=== PATIENT | female | born 2000 | race Caucasian/White ===

== ENCOUNTER 2020-10-07 07:10 | Emergency (ER) | payer BC ==
[2020-10-07 07:57] LABS: HEMOGLOBIN 14.6 gm/dl (12.3-15.3); RED BLOOD COUNT 5.14 M/UL (4.00-5.10); WHITE BLOOD COUNT 13.3 K/UL (4.5-11.0)
[2020-10-07 08:16] LABS: BUN/CREATININE RATIO 17 (0-10)
[2020-10-07] MEDS ORDERED: ONDANSETRON ODT4 MG SL (12:27)
[2020-10-07] MEDS ORDERED: TORADOL 10 MG T10 MG PO (12:27)
== END 2020-10-07 13:17 | disposition home or self-care (01) ==
LOC: ER1 07:10
PROVIDERS: Family Medicine
DX: N83.201 Unspecified ovarian cyst, right side (principal); N83.202 Unspecified ovarian cyst, left side; I88.0 Nonspecific mesenteric lymphadenitis; K76.0 Fatty (change of) liver, not elsewhere classified; Z90.89 Acquired absence of other organs; Z79.899 Other long term (current) drug therapy
CPT/HCPCS: 80053; 81001; 83690; 84703; 85025; 96374; 99284; J1885; Q9967

== ENCOUNTER → 2021-03-07 | Outpatient (CLI) | payer BC ==
[~2021-03-07] MED LIST: ONDANSETRON ODT4 MG SL; TORADOL 10 MG T10 MG PO
[2021-03-07 10:42] LABS: HEMOGLOBIN 14.2 gm/dl (12.3-15.3); RED BLOOD COUNT 4.74 M/UL (4.00-5.10); WHITE BLOOD COUNT 11.1 K/UL (4.5-11.0)
[2021-03-07 11:09] LABS: BUN/CREATININE RATIO 14 (0-10)
== END ==
LOC: LAB 10:10
PROVIDERS: Family Medicine
DX: E78.5 Hyperlipidemia, unspecified (principal); E55.9 Vitamin D deficiency, unspecified
CPT/HCPCS: 36415; 80053; 80061; 84439; 84443; 85027